=== PATIENT | male | born 1955 | race Caucasian/White ===

== ENCOUNTER → 2016-04-20 | Outpatient (CLI) | payer MEDICAID ==
[~2016-04-20] MED LIST: ACETAMINOPHEN-H1 TA1 PO; ASPIRIN 32325 MG/TAB PO; ATENOLOL100 MG PO; CLINDAMYCIN300 MG PO; COLACE 100100 MG/CAP PO; DAILY VITE W/IR1 TA1 PO; FUROSEMIDE40 MG PO; GABAPENTIN TAB600 MG PO; GABAPENTIN600 MG PO; HCTZ 25MG25 MG PO; K-DUR 10 MEQ T10 MEQ PO; KROGER NIC21 MG/24 H TD; LASIX 40MG TABL40 MG PO; LEVOTHYROXIN0.137 MG PO; LEVOXYL0.125 MG PO; LISINOPRIL10 MG PO; LISINOPRIL5 MG PO; LORAZEPAM0.5 M1 PO; MOBIC 7.5MG7.5 MG PO; NEIGHBOR PH MM; NORCO 325 MG-51 TA1 PO; POTASS CHL20 MEQ/15 PO; POTASSIUM CHLO20 ME4 PO; SERTRALINE HYD100 MG PO; SIMVASTATIN10 MG PO; SIMVASTATIN20 M1 PO; SIMVASTATIN20 MG PO; SYMBICORT1 AE5 IH; VENTOLIN0.09 MG IH
== END ==
LOC: RAD 12:26
DX: J44.1 Chronic obstructive pulmonary disease with (acute) exacerbation (principal); R13.12 Dysphagia, oropharyngeal phase; R63.4 Abnormal weight loss; C73 Malignant neoplasm of thyroid gland; J01.90 Acute sinusitis, unspecified

== ENCOUNTER → 2016-04-21 | Outpatient (CLI) | payer MEDICAID ==
[2016-01-22 13:54] VITALS: BP 90/64
== END ==
LOC: RAD 12:28
DX: R13.12 Dysphagia, oropharyngeal phase (principal)

== ENCOUNTER 2016-04-25 09:03 | Outpatient (RCR) | payer MEDICAID ==
[2016-01-22 13:54] VITALS: BP 90/64
[~2016-04-25 09:03] MED LIST changes: -LEVOXYL0.125 MG PO
[2016-06-29] MEDS ORDERED: LEVOXYL0.125 MG PO (11:48)
== END 2016-07-16 | disposition home or self-care (01) ==
LOC: SPEECH
DX: R13.13 Dysphagia, pharyngeal phase (principal); Z85.810 Personal history of malignant neoplasm of tongue; Z85.850 Personal history of malignant neoplasm of thyroid

== ENCOUNTER → 2016-04-27 | Outpatient (CLI) | payer MEDICAID ==
[~2016-04-27] MED LIST changes: +LEVOXYL0.125 MG PO
== END ==
LOC: LAB 15:39
DX: E87.6 Hypokalemia (principal)

== ENCOUNTER → 2016-05-09 | Outpatient (CLI) | payer MEDICAID | LOC: LAB 13:00 | DX: J44.1 Chronic obstructive pulmonary disease with (acute) exacerbation (principal); R13.12 Dysphagia, oropharyngeal phase; R63.4 Abnormal weight loss; C73 Malignant neoplasm of thyroid gland; J01.90 Acute sinusitis, unspecified; E87.6 Hypokalemia; M51.26 Other intervertebral disc displacement, lumbar region; M62.81 Muscle weakness (generalized) ==

== ENCOUNTER → 2016-06-23 | Outpatient (CLI) | payer MEDICAID ==
[2016-01-22 13:54] VITALS: BP 90/64
== END ==
LOC: LAB 15:21 → RAD 15:21 → AMSURD 15:21
DX: R09.89 Other specified symptoms and signs involving the circulatory and respiratory systems (principal)

== ENCOUNTER → 2016-06-29 | Outpatient (CLI) | payer MEDICAID ==
--- NOTE | 2016-06-29 11:30 | NUR ---
PATIENT ARRIVES FROM [facility] FOR IV FLUIDS WITH POTASSIUM. ORTHO BP TAKEN AT CLINIC- SITTING 113/80 P 85, STANDING 96/65 P 109.
[2016-06-29 11:36] VITALS: BP 110/53
--- NOTE | 2016-06-29 12:05 | NUR ---
PATIENT AGREES TO ATMOSPHERIC DRIER TENDER FOR DURATION OF NS WITH 20MEQ KCL INFUSION. MEAL TRAY DELIVERED TO PATIENT. THERE IS QUITE A BIT OF ARTIFACT WITH TELEMETRY; RHYTHM IS IRREGULAR.
--- NOTE | 2016-06-29 13:39 | NUR ---
SITTING IN CHAIR. DENIES NEEDS AT THIS TIME.
--- NOTE | 2016-06-29 14:35 | NUR ---
DR HIGGINS IN TO SEE PATIENT.
--- NOTE | 2016-06-29 14:59 | NUR ---
PATIENT EDUCATION REGARDING HIGH POTASSIUM DIET PROVIDED; WRITTEN AND VERBAL. [facility] CONSULTED FOR [facility]. PATIENT EDUCATED THAT HE MAY MIX MEDICATION WITH JUICE TO SEE IF THAT WILL IMPROVE THE TASTE. HE IS WILLING TO TRY IT.
== END ==
LOC: LAB 10:28 → AMSURD 10:28
DX: E87.6 Hypokalemia (principal)

== ENCOUNTER → 2016-07-01 | Outpatient (CLI) | payer MEDICAID ==
--- NOTE | 2016-07-01 10:10 | NUR ---
PT VERBALLY AGGRESSIVE AND REFUSING CARES AT THIS TIME, ZEENAT Eric AND MOTION STUDY TECHNICIAN SERGEY HARRISON PRESENT TO PATIENTS ROOM TO ADDRESS SITUATION, PT STATING REPEATEDLY TO THIS NURSE WHILE ATTEMPTING AN IV STICK "YOU DON'T KNOW WHAT THE FK YOU'RE DOING, GET THE F* OUT OF THIS ROOM," WHILE REMOVING THE TOURNICAT FROM HIS ARM AND REFUSING TO BE STUCK, AFTER DISCUSSING THIS WITH MANAGEMENT AND PRESENTING TO HIS BEDSIDE PATIENT AGREES TO LET BEBE THE VAMP MAKER PLACE AN IV, PT REFUSING VITAL SIGNS PRIOR TO MEDICATIONS STATING "WHO THE F CARES WHAT THEY ARE, GET THAT SHIT OFF MY ARM," WILL RESUME WITH ORDERS AND BEGING IVF ADMINISTRATION AT THIS TIME ORDERED
[2016-07-01 11:25] VITALS: BP 107/72
--- NOTE | 2016-07-01 11:54 | NUR ---
PT STILL CALM AND COOPERATIVE, AGREED TO ORAL POTASSIUM IN APPLE JUICE, WORKING ON COMPLETING THAT NOW, WARM BLANKET PROVIDED AT THIS TIME
[2016-07-01 12:33] VITALS: BP 106/65
--- NOTE | 2016-07-01 12:35 | NUR ---
CALL TO TO NOTIFY HIM THAT PATIENTS NS WITH POTASSIUM IS COMPLETED, HE DRANK ALL OF THE POTASSIUM WITH APPLE JUICE ORDERED WELL, IV IS REMOVED, PT IS REQUESTING TO LEAVE, AND HAS AGREED TO [facility], SIZE MEDIUM [facility]CTOR [facility] HOSE APPLIED AND SET WITH PATIENT, REQUESTS TO SEE PATIENT NEXT Monday07/06/16 AT 0830, AN APPOINTMENT CARD SENT WITH PATIENT AND PATIENT STATES HE WILL RETURN AT THIS TIME, ALSO STATES THAT HIS MEDICAITON HAS BEEN CALLED INTO THE PHARMACY AND PT STATES HE IS HEADING THERE NEXT TO GET IT, STILL CALM AND COOPERATIVE UPON LEAVING, ANNETTE VSS
== END ==
LOC: AMSURD 09:22 → LAB 09:22
DX: E87.6 Hypokalemia (principal); I95.1 Orthostatic hypotension

== ENCOUNTER → 2016-07-06 | Outpatient (CLI) | payer MEDICAID ==
[2016-07-06 10:38] VITALS: BP 95/64
[2016-07-06 10:39] VITALS: BP 95/64
== END ==
LOC: LAB 09:49 → AMSURD 09:49
DX: R79.9 Abnormal finding of blood chemistry, unspecified (principal)

== ENCOUNTER → 2016-07-13 | Outpatient (CLI) | payer MEDICAID ==
[2016-07-06 10:39] VITALS: BP 95/64
== END ==
LOC: LAB 13:42
DX: R79.9 Abnormal finding of blood chemistry, unspecified (principal)

== ENCOUNTER 2016-07-14 12:14 | Inpatient (IN) | payer MEDICAID ==
[2016-07-14 13:54] VITALS: BP 92/67
[2016-07-14 14:33] VITALS: BP 94/67
[2016-07-14 18:07] VITALS: BP 98/52
[2016-07-14 23:00] VITALS: BP 87/60
[2016-07-15 02:31] VITALS: BP 82/65
[2016-07-15 06:27] VITALS: BP 92/59
[2016-07-15 11:14] VITALS: BP 91/66
[2016-07-15 15:28] VITALS: BP 117/81
[2016-07-15 18:14] VITALS: BP 118/78
[2016-07-15 22:38] VITALS: BP 105/72
[2016-07-16 03:10] VITALS: BP 94/73
[2016-07-16 06:21] VITALS: BP 89/67
[2016-07-16 12:15] VITALS: BP 52/30
== END 2016-07-16 15:15 | disposition expired | DRG 871 ==
LOC: AMSURD 12:14 → MED/SURG 12:14 → EDSTATUS 13:11 → MED/SURG 07-16 15:15
PROVIDERS: ADMIT Family Medicine
DX: A41.9 Sepsis, unspecified organism (principal); J18.9 Pneumonia, unspecified organism; E89.0 Postprocedural hypothyroidism; Z66 Do not resuscitate; I10 Essential (primary) hypertension; E87.6 Hypokalemia; F17.210 Nicotine dependence, cigarettes, uncomplicated; M47.896 Other spondylosis, lumbar region; F41.9 Anxiety disorder, unspecified; R13.10 Dysphagia, unspecified; Z85.850 Personal history of malignant neoplasm of thyroid; Z85.818 Personal history of malignant neoplasm of other sites of lip, oral cavity, and pharynx; E46 Unspecified protein-calorie malnutrition; L98.411 Non-pressure chronic ulcer of buttock limited to breakdown of skin; L03.317 Cellulitis of buttock; Z68.20 Body mass index [BMI] 20.0-20.9, adult
CPT/HCPCS: A6206; J0696; J1650; J2060; J2270; J2405; J7030; J7042; J7050